=== PATIENT | male | born 1985 | race Caucasian/White ===

== ENCOUNTER → 2016-10-13 | Outpatient (CLI) | payer MEDICAID ==
[~2016-10-13] MED LIST: ATOM80CA PO; BENZ200C25 PO; BNZT1T GT; DIVA500T PO; OSLT75CRX PO
--- NOTE | 2016-10-13 17:06 | Diagnostic Imaging Report ---
PA and lateral views of the chest Indication: Heartburn Findings: The lungs are clear. The heart size is normal. There is no effusion or pneumothorax The mediastinum and lucho appear unremarkable. Impression: Unremarkable study. Dictated by: Dictated on workstation # [id number]
== END ==
LOC: RAD 16:38
PROVIDERS: ATTEND Family Medicine
DX: L52 Erythema nodosum (principal)
CPT/HCPCS: 71020